=== PATIENT | male | born 1950 | race African-American/Black ===

== ENCOUNTER 2018-11-27 13:58 | Emergency (ER) | payer OTHER ==
[2018-11-27 14:19] VITALS: BP 141/85; PULSE 90; TEMP 98.4; BMI 29.2
[2018-11-27] MEDS ORDERED: SODIUM CHLORIDE 1,000 ML IV STA (15:08)
[2018-11-27] MEDS ORDERED: ONDANSETRON 4 MG/2 ML VIAL IVPB ONE (15:08)
[2018-11-27] MEDS ORDERED: ONDANSETRON 4 MG/2 ML VIAL ONE (15:11)
[2018-11-27 15:35] LABS: EOS % 0.4 % (0-4.5); HEMATOCRIT 43.4 % (35.4-49); HEMOGLOBIN 14.4 GM/dl (11.7-16.9); LYMPH % 18.5 % (8-40); MCH 27.8 pg (25.7-33.7); MCHC 33.1 g/dl (32.0-35.9); MEAN CELL VOLUME 83.9 fl (80-96); MEAN PLT VOLUME 9.3 fl (7.5-11.1); MONO % 8.7 % (3.8-10.2); NEUT % 71.4 % (42.8-82.8); PLATELET COUNT 232 K/MM3 (134-434); RBC 5.17 M/mm3 (4.00-5.60); RDW 12.7 % (11.9-15.9); WHITE BLOOD COUNT 7.7 K/mm3 (4.0-10.8)
[2018-11-27 15:42] LABS: ALBUMIN 3.7 g/dl (3.4-5.0); ALK PHOS 91 U/L (45-117); ANION GAP 10 MMOL/L (8-16); BILIRUBIN,TOTAL 0.7 mg/dl (0.2-1); BLOOD UREA NITROGEN 17 mg/dl (7-18); CALCIUM 8.8 mg/dl (8.5-10); CHLORIDE 107 mmol/L (98-107); CO2 22 mmol/L (21-32); CREATININE 0.9 mg/dl (0.55-1.3); GLUCOSE,RANDOM 131 mg/dl (74-106); SGOT/AST 24 U/L (15-37); SGPT/ALT 25 U/L (13-61); SODIUM 139 mmol/L (136-145); TOT PROT 6.7 g/dl (6.4-8.2)
--- NOTE | 2018-11-27 16:34 | PDOC ---
Documentation entered by Yuliya Fairchild SCRIBE, acting as scribe for Cali Donaldson MD. Cali Donaldson MD: This documentation has been prepared by the Gurinder trotter Xhesika, SCRIBE, under my direction and personally reviewed by me in its entirety. I confirm that the documentation accurately reflects all work, treatment, procedures, and medical decision making performed by me. History of Present Illness - General Chief Complaint: Respiratory Stated Complaint: COUGH, DIARRHEA Time Seen by Provider: 11/27/18 14:58 History Source: Patient Exam Limitations: No Limitations - History of Present Illness Initial Comments: 11/27/18 15:14 The patient is a 68 year old male, with a significant past medical history of high blood pressure (complaint with medications) who presents to the emergency department with cough and diarrhea since last night. The patient states he experienced 5 episodes of loose, brown, watery diarrhea and dry cough after eating broccoli and rice from a restaurant for dinner. The patient states he ate a sandwich prior to his arrival to the ED today, however, he could not keep the food down and vomited. The patient endorses a runny nose secondary to his symptoms. The patient denies diarrhea today, sick contact, abdominal pain or past stomach problems. The patient denies chest pain, shortness of breath, headache or dizziness. The patient denies fever, chills, nausea, or constipation.. Allergies:NKDA Past surgical history: Abdominal hernia (15 years ago) Social history: None reported PCP: Doctor in [place] 11/27/18 16:31 Physical exam: Alert and oriented well-developed well-nourished no acute distress cheerful and cooperative Afebrile, vital signs normal PERRLA, ENT clear Neck supple without bruit mass or nodes Chest clear CV regular without murmur rub or gallop Abdomen nondistended, bowel sounds normal. Soft without mass tenderness organomegaly. Skin clear, no rash, adequate turgor and wet mucous membranes Extremity no CCE Neurological intact Impression :viral gastroenteritis. Although the patient describes a dry cough. There is no sign of respiratory illness. ENT and lungs are clear. Plan: Symptomatic treatment, clear liquids, follow-up with symptoms worse or further symptoms develop. Fully ambulatory and in no distress at discharge with family. 11/27/18 16:33 Past History - Past Medical History Allergies/Adverse Reactions: Allergies Allergy/AdvReac Type Severity Reaction Status Date / Time No Known Allergies Allergy Verified 11/27/18 13:59 Home Medications: Ambulatory Orders Bp Medication 1 tab PO DAILY 11/27/18 Loperamide HCl [Imodium -] 2 mg PO Q8H PRN #12 capsule 11/27/18 Ondansetron [Zofran Odt -] 4 mg SL TID PRN #10 od.tablet 11/27/18 COPD: No HTN: Yes - Surgical History Abdominal Surgery: Yes (abdominal hernia) - Suicide/Smoking/Psychosocial Hx Smoking History: Never smoked Have you smoked in the past 12 months: No Information on smoking cessation initiated: No Hx Alcohol Use: No Review of Systems - Review of Systems Able to Perform ROS?: Yes Comments:: 11/27/18 15:15 GENERAL/CONSTITUTIONAL: No fever or chills. No weakness. HEAD, EYES, EARS, NOSE AND THROAT: (+) runny nose. No change in vision. No ear pain or discharge. No sore throat. CARDIOVASCULAR: No chest pain or shortness of breath. RESPIRATORY: (+) cough. No wheezing, or hemoptysis. GASTROINTESTINAL: (+)diarrhea. (+) vomiting. No nausea or constipation. GENITOURINARY: No dysuria, frequency, or change in urination. MUSCULOSKELETAL: No joint or muscle swelling or pain. No neck or back pain. SKIN: No rash NEUROLOGIC: No headache, vertigo, loss of consciousness, or change in strength/ sensation. ENDOCRINE: No increased thirst. No abnormal weight change. HEMATOLOGIC/LYMPHATIC: No anemia, easy bleeding, or history of blood clots. ALLERGIC/IMMUNOLOGIC: No hives or skin allergy. *Physical Exam - Vital Signs Last Vital Signs Temp Pulse Resp BP Pulse Ox 98.4 F 90 16 141/85 98 11/27/18 13:58 11/27/18 13:58 11/27/18 13:58 11/27/18 13:58 11/27/18 13:58 ED Treatment Course - LABORATORY CBC & Chemistry Diagram: 11/27/18 15:20 11/27/18 15:20 - ADDITIONAL ORDERS Additional order review: Laboratory Results 11/27/18 15:20 Sodium 139 Potassium 4.0 Chloride 107 Carbon Dioxide 22 Anion Gap 10 BUN 17 Creatinine 0.9 Creat Clearance w eGFR 84.17 Random Glucose 131 H Calcium 8.8 Total Bilirubin 0.7 AST 24 ALT 25 Alkaline Phosphatase 91 Total Protein 6.7 Albumin 3.7 11/27/18 15:20 RBC 5.17 MCV 83.9 MCHC 33.1 RDW 12.7 MPV 9.3 Neutrophils % 71.4 Lymphocytes % 18.5 Monocytes % 8.7 Eosinophils % 0.4 Basophils % 1.0 - Medications Given in the ED: ED Medications Discontinued Medications Generic Name Dose Route Start Last Admin Trade Name Junq PRN Reason Stop Dose Admin Ondansetron HCl 4 mg 11/27/18 15:08 11/27/18 15:15 Zofran Injection IVPB 11/27/18 15:09 4 mg ONCE ONE Administration Medical Decision Making - Medical Decision Making 11/27/18 16:04 CBC and chemistries no significant abnormalities. Specifically, normal white count, normal BUN and electrolytes Patient with several episodes of diarrhea yesterday, nausea and vomiting this morning, one episode of vomiting after he tried to eat a sandwich. Symptoms appear relatively mild. No findings on physical exam, notably no abdominal tenderness distention. Further history shows that he has grandchildren who go to daycare, who he lives with. Most likely this is a viral gastroenteritis acquired from the children. No further nausea or vomiting with medication. IV fluids. Symptomatic treatment and follow-up if condition worsens. *DC/Admit/Observation/Transfer Diagnosis at time of Disposition: Viral gastroenteritis - Discharge Dispostion Disposition: HOME Condition at time of disposition: Improved Decision to Admit order: No - Prescriptions Prescriptions: Loperamide HCl [Imodium -] 2 mg PO Q8H PRN #12 capsule PRN Reason: Diarrhea Ondansetron [Zofran Odt -] 4 mg SL TID PRN #10 od.tablet PRN Reason: Nausea And/Or Vomiting - Referrals - Patient Instructions Printed Discharge Instructions: DI for Viral Gastroenteritis -- Adult - Post Discharge Activity
== END 2018-11-27 17:02 | disposition home or self-care (01) ==
LOC: FER 13:58
PROC: 3E033GC Introduction of Other Therapeutic Substance into Peripheral Vein, Percutaneous Approach (ICD-10-PCS; principal; 2018-11-27)
PROC: 3E0337Z Introduction of Electrolytic and Water Balance Substance into Peripheral Vein, Percutaneous Approach (ICD-10-PCS; 2018-11-27)
DX: A08.4 Viral intestinal infection, unspecified (principal); I10 Essential (primary) hypertension
CPT/HCPCS: 36415; 80053; 85025; 96361; 96374; 99285-25; J7030